=== PATIENT | male | born 1975 | race Caucasian/White ===

== ENCOUNTER 2021-11-16 09:58 | Emergency (ER) | payer OTHER, SELFPAY ==
[2021-11-16 10:22] VITALS: BP 142/101; PULSE 71; RESP 18; TEMP 36.4; O2SAT 99; BMI 38.6
--- NOTE | 2021-11-16 11:05 | CRLHL7_ITS ---
For Patients: As a result of the Century Cures Act, medical imaging exams and procedure reports are released immediately into your electronic medical record. You may view this report before your referring provider. If you have questions, please contact your health care provider. Indication: Left flank pain, urinary frequency Technique: Volumetric multidetector CT images of the abdomen and pelvis were without the administration of intravenous contrast. Comparison: None available. Findings: There is minimal dependent basilar atelectasis seen within the lung bases. The liver is normal in attenuation without intrahepatic biliary ductal dilatation. The gallbladder is unremarkable without evidence of radiopaque calculus. There is no significant common biliary ductal dilatation or abrupt cut off. The spleen is normal in attenuation and size. The stomach and duodenum are grossly unremarkable. The pancreas is normal in attenuation without significant atrophy. The adrenal glands are unremarkable. There is no evidence of radiopaque calculus or hydronephrosis. There is moderate stool seen throughout the colon with minimal distal colonic diverticulosis. There is no evidence of diverticulitis. The appendix is unremarkable. There is no significant mesenteric, retroperitoneal, or pelvic sidewall lymph nodes. The aorta is nonaneurysmal. There is no significant atherosclerotic disease appreciated. The solid pelvic viscera are grossly unremarkable. There is no free fluid or free air. There is a small fat containing umbilical hernia. The lumbar vertebral body heights are grossly maintained with mild multi-level degenerative disc disease. There is no evidence of displaced fracture. Impression: No evidence of obstructive radiopaque calculus or hydronephrosis. Moderate stool seen throughout the colon with minimal colonic diverticulosis. No evidence of diverticulitis. No definite acute intra-abdominal abnormality. Please note that all CT scans at this facility use dose modulation, iterative reconstruction, and/or weight-based dosing when appropriate to reduce radiation dose to as low as reasonably achievable. Dictated by Deo Jeffrey MD @ 11/16/2021 12:29:57 PM (Electronically Signed)
--- NOTE | 2021-11-16 11:07 | ED_ITS ---
HPI - General Adult General Chief complaint: Flank Pain Stated complaint: Kidney pain Time Seen by Provider: 11/16/21 10:53 History of Present Illness HPI narrative: This 46-year-old male comes in reporting left flank pain and urinary frequency over the past couple days. He states that he was positive for COVID at the end of last month and has had a negative test since then. He states that he has left flank pain that is reproducible when he might hiccups or burp. He also has increased pain when eating certain foods. pain is not particularly worse with any specific movement otherwise. He does not report any nausea, vomiting, diarrhea, or fevers. He states that this pain in his left flank seems to come and go. He does not have a personal history of kidney stones but states that his brother did have such. Prior to this he has been in good health. Related Data Previous Rx's Medication Instructions Recorded albuterol sulfate 90 mcg/actuation 2 inh INHALATION Q4H PRN #8.5 g 11/04/21 aerosol inhaler (Ventolin HFA) prednisone 20 mg tablet 20 mg PO BID #10 tab 11/04/21 cyclobenzaprine 10 mg tablet 10 mg PO TID #15 tab 11/16/21 ketorolac 10 mg tablet 10 mg PO TID 5 Days #15 tab 11/16/21 Allergies Allergy/AdvReac Type Severity Reaction Status Date / Time No Known Drug Allergies Allergy Verified 11/16/21 10:33 Review of Systems Status of ROS: Reports: 10 or more systems reviewed and unremarkable except as noted in History and below Narrative: Constitutional: No fevers, no weight gain or loss. Eyes: No discharge. No vision changes. HENT: No congestion, no sore throat, no ear pain. Cardiovascular: No chest pain, no palpitations. Respiratory: No shortness of breath, no wheezes, no cough. Gastrointestinal: No abdominal pain, no vomiting, no diarrhea. Left flank pain as described above. Genitourinary: No hematuria. Increased urinary frequency. Musculoskeletal: Normal range of motion. Skin: No rashes, no pruritis. Neurological: No dizziness, weakness, sensory change, speech change. Endo/Heme/Allergies: No bruising or bleeding. No polydipsia. Pysch: no suicidality, no anxiety, no insomnia. All other systems reviewed and are negative. [facility] Medical History (Updated 11/16/21 @ 14:45 by Jeffrey Bah MD) COVID Surgical History (Updated 11/16/21 @ 11:22 by Chelsey Regalado RN) No significant past surgical history Social History Smoking Status: Never smoker Do you use any of these nicotine containing products: None Second hand tobacco smoke exposure: No How often do you have a drink containing alcohol: never How often do you have six or more drinks on one occasion: Never AUDIT-C Alcohol total score: 0 Non-prescribed substance use: denies use Exam Narrative: Exam Narrative: Constitutional: Well-developed, well-nourished, no acute distress. HEENT: Normocephalic, atraumatic. Neck: Normal range of motion. Nontender. Supple. Heart: Regular. No murmurs. Normal rate. Intact distal pulses. Lungs: Clear to auscultation. No chest discomfort. No wheezes, rhonchi, or rales. Abdomen: Normal bowel sounds. Nontender. No rebound tenderness. Genitalia: Deferred. Back: No midline tenderness. Normal range of motion. Extremities: Normal range of motion. No injury. Skin: Intact. No rash. Warm. No erythema or pallor. Neurologic: No altered sensation. No weakness. Alert and oriented. Psychiatric: No suicidality. No anxiety or depression. No insomnia. Nursing notes and vitals signs are reviewed. Const: Vital Signs, click to edit/add: Vital Signs - 24 hr 11/16/21 10:22 Temperature 97.6 F Pulse Rate [Femora l] 71 Respiratory Rate 18 Blood Pressure [Le ft Forearm] 142/101 H Pulse Oximetry 99 Course Vital Signs Vital signs: Initial Vital Signs Temperature 97.6 F 11/16/21 10:22 Temperature Source Temporal Artery Scan 11/16/21 10:22 Pulse Rate 71 11/16/21 10:22 Pulse Rhythm 11/16/21 10:22 Respiratory Rate 18 11/16/21 10:22 Blood Pressure 142/101 H 11/16/21 10:22 Blood Pressure Mean 114 11/16/21 10:22 Blood Pressure Position Sitting 11/16/21 10:22 Pulse Oximetry 99 11/16/21 10:22 Oxygen Delivery Method 11/16/21 10:22 Vital Signs Temperature 97.6 F 11/16/21 10:22 Pulse Rate 71 11/16/21 10:22 Respiratory Rate 18 11/16/21 10:22 Blood Pressure 142/101 H 11/16/21 10:22 Pulse Oximetry 99 11/16/21 10:22 Temperature 97.6 F 11/16/21 10:22 Pulse Rate 71 11/16/21 10:22 Respiratory Rate 18 11/16/21 10:22 Blood Pressure 142/101 H 11/16/21 10:22 Pulse Oximetry 99 11/16/21 10:22 Medical Decision Making MDM Narrative Medical decision making narrative: This 46-year-old male comes in with left flank pain that is reproducible with certain maneuvers. He also reports some urinary frequency. Labs were drawn which returned with normal results. He did have a brother with a kidney stones was CT scan also was done but this returns with no evidence of any abnormality that would explain his symptoms. It seems more likely that this is musculos keletal in nature. There is a reproducible component to these symptoms. The patient received prescriptions for Toradol and Flexeril. He is reassured with the lab and imaging results. Lab Data Labs: Lab Results 11/16/21 11/16/21 11/16/21 Range/Units 11:15 11:22 11:22 WBC 6.94 (4.50-11.00) K/uL RBC 4.93 (4.30-5.90) m/uL Hgb 14.3 (13.5-17.5) gm/dL Hct 42.5 (37.0-53.0) % MCV 86 (80-100) fL MCH 29 (26-34) pg MCHC 34 (32-36) gm/dL RDW Coeff of Laure 13.1 (11.5-15.5) % Plt Count 269 (140-440) K/uL Neut % (Auto) 57.4 (42.0-72.0) % Lymph % (Auto) 29.8 (20-44) % [place] % (Auto) 10.4 (0.0-11.0) % Eos % (Auto) 1.9 (0.0-7.0) % Baso % (Auto) 0.4 (0.0-3.0) % Neut # (Auto) 3.98 (1.7-7.0) K/uL Lymph # (Auto) 2.07 (0.90-2.90) K/uL [place] # (Auto) 0.70 (0.00-0.90) K/UL Eos # (Auto) 0.13 (0.00-0.50) K/uL Baso # (Auto) 0.03 (0.00-0.30) K/uL Abs Immat Gran (auto) 0.01 (0.00-0.30) K/uL Sodium 139 (135-149) mmol/L Potassium 4.1 (3.6-5.1) mmol/L Chloride 105 (96-114) mmol/L Carbon Dioxide 26 (20-32) mmol/L BUN 10 (5-24) mg/dL Creatinine 0.8 (0.5-1.5) mg/dL Estimated Creat Clear 121.67 Glucose 95 (60-115) mg/dL Calcium 9.0 (8.4-10.6) mg/dL Total Bilirubin 0.6 (0.1-1.5) mg/dL Direct Bilirubin 0.4 (0.0-0.5) mg/dL AST 28 (12-35) U/L ALT 42 (4-50) U/L Alkaline Phosphatase 77 (40-150) U/L Total Protein 7.8 (6.0-8.3) g/dL Albumin 4.6 (3.3-5.0) g/dL Lipase 51 (23-300) U/L Urine Color Yellow (Yellow) Urine Appearance Clear (Clear) Urine pH 7.0 (5.0-8.5) Ur Specific [place] 1.010 (1.000-1.030) Urine Protein Negative (Negative) Urine Glucose (UA) Negative (Negative) Urine Ketones Negative (Negative) Urine Blood Negative (Negative) Urine Nitrite Negative (Negative) Urine Bilirubin Negative (Negative) Urine Urobilinogen 0.2 (0.2-1.0) Ur Leukocyte Esterase Negative (Negative) Urine RBC 0-2 (0-2) Urine WBC 0-2 (0-5) Ur Squamous Epith Cells Few (None-Few) Urine Bacteria Few A (None) Imaging Data CT scan - abdomen: Radiologist's impression: No evidence of obstructive radiopaque calculus or hydronephrosis. Moderate stool seen throughout the colon with minimal colonic diverticulosis. No evidence of diverticulitis. No definite acute intra-abdominal abnormality. Discharge Plan Discharge Clinical Impression: Acute left flank pain Patient Disposition: Home, Self-Care Condition: Stable Instructions: Flank Pain (ED) Additional Instructions: Left flank pain. Urinary frequency. Take medication as prescribed. Consider using peridium (Azo, Uristat, Prodium) also as needed and directed. Follow up with MD or return if worsening. Prescriptions: New ketorolac 10 mg tablet 10 mg PO TID 5 Days Qty: 15 0RF cyclobenzaprine 10 mg tablet 10 mg PO TID Qty: 15 0RF No Action prednisone 20 mg tablet 20 mg PO BID Qty: 10 0RF albuterol sulfate [Ventolin HFA] 90 mcg/actuation HFA aerosol inhaler 2 inh inhalation Q4H PRN (Reason: shortness of breath or wheezing) Qty: 8.5 5RF Follow Up/Referrals: Ulysses Hanley MD [Referring] - Stand Alone Forms: [employer] Info Instructions
[2021-11-16 11:28] LABS: Appearance Urine Clear (Clear); Bilirubin Urine Negative (Negative); Blood Urine Negative (Negative); Color Urine Yellow (Yellow); Glucose Urine Negative (Negative); Ketones Urine Negative (Negative); Leukocyte Esterase Urine Negative (Negative); Nitrite Urine Negative (Negative); Protein Urine Negative (Negative); Urobilinogen Urine 0.2 (0.2-1.0)
[2021-11-16 11:37] LABS: Carbon Dioxide* 26 mmol/L (20-32); Chloride* 105 mmol/L (96-114); Glucose* 95 mg/dL (60-115); Potassium* 4.1 mmol/L (3.6-5.1); Sodium* 139 mmol/L (135-149)
[2021-11-16 11:39] LABS: Basophils Absolute Auto 0.03 K/uL (0.00-0.30); Basophils Percent Auto 0.4 % (0.0-3.0); Eosinophils Absolute Auto 0.13 K/uL (0.00-0.50); Eosinophils Percent Auto 1.9 % (0.0-7.0); Hematocrit 42.5 % (37.0-53.0); Hemoglobin* 14.3 gm/dL (13.5-17.5); Immature Granulocytes Abs Auto 0.01 K/uL (0.00-0.30); Lymphocytes Absolute Auto 2.07 K/uL (0.90-2.90); Lymphocytes Percent Auto 29.8 % (20-44); Mean Corpuscular HGB Conc 34 gm/dL (32-36); Mean Corpuscular Hemoglobin 29 pg (26-34); Mean Corpuscular Volume 86 fL (80-100); Monocytes Percent Auto 10.4 % (0.0-11.0); Neutrophils Absolute Auto 3.98 K/uL (1.7-7.0); Neutrophils Percent Auto 57.4 % (42.0-72.0); Platelet Count* 269 K/uL (140-440); RDW Coefficient of Variation % 13.1 % (11.5-15.5); Red Blood Count 4.93 m/uL (4.30-5.90); White Blood Count* 6.94 K/uL (4.50-11.00)
[2021-11-16 11:41] LABS: Bacteria Urine Few; RBC Urine 0-2 (0-2); Squamous Epithelial Cell Urine Few (None-Few); WBC Urine 0-2 (0-5)
[2021-11-16 11:56] LABS: Slide Review Reflex No
[2021-11-16 13:27] LABS: Albumin* 4.6 g/dL (3.3-5.0)
[2021-11-16 13:30] LABS: Aspartate Amino Transferase* 28 U/L (12-35); Bilirubin Direct* 0.4 mg/dL (0.0-0.5); Bilirubin Total* 0.6 mg/dL (0.1-1.5); Blood Urea Nitrogen* 10 mg/dL (5-24); Creatinine* 0.8 mg/dL (0.5-1.5); Est. Creatinine Clearance* 121.67; Estimated Glomerular Filt Rate 111.92; Total Protein* 7.8 g/dL (6.0-8.3)
[2021-11-16 13:31] LABS: Alanine Aminotransferase* 42 U/L (4-50); Alkaline Phosphatase* 77 U/L (40-150); Lipase* 51 U/L (23-300)
== END 2021-11-16 15:01 | disposition home or self-care (01) ==
PROVIDERS: Emergency Provider Emergency Medicine Emergency Medical Services
DX: R10.12 Left upper quadrant pain (principal)
CPT/HCPCS: 36415; 74176; 80048; 80076; 81001; 83690; 85025; 87086; 99284; 99285

== ENCOUNTER 2023-06-16 17:31 | Emergency (ER) | payer OTHER, SELFPAY ==
[2023-06-16] VITALS (22 sets, daily range): BP systolic 109–149; BP diastolic 75–114; PULSE 68–91; RESP 18; O2SAT 91–97; BMI 40.2
--- NOTE | 2023-06-16 17:51 | CRLHL7_ITS ---
For Patients: As a result of the Century Cures Act, medical imaging exams and procedure reports are released immediately into your electronic medical record. You may view this report before your referring provider. If you have questions, please contact your health care provider. Indication: Chest pain. Shortness of breath. Technique: PA and lateral chest radiographs. Comparison: Chest CT from 01/23/2021. Findings: Lungs are clear. No consolidation, effusion or pneumothorax. Cardiomediastinal silhouette is within normal limits. No significant osseous or soft tissue findings. Impression: 1. No acute cardiopulmonary process. Dictated by Chris Redd MD @ 06/16/2023 7:16:27 PM (Electronically Signed)
--- NOTE | 2023-06-16 17:57 | ED_ITS ---
HPI - Chest Pain General Date Seen: 06/16/23 Chief Complaint: Chest Pain Stated Complaint: Chest pain-hard to breath Time Seen by Provider: 06/16/23 17:37 Source: patient Mode of arrival: ambulatory Limitations: no limitations History of Present Illness HPI narrative: Patient is a 48-year-old male with no pertinent medical problems presenting to the emergency department for chest pain and shortness of breath. He states he has been feeling shortness of breath for the past 6 month but has not noticed the chest pain until the past month. Has no chest pain has been worsening over the past 2 weeks with it seeming to get acutely worse last night. Patient states he will have be the chest pain radiates to his left arm when he exerts himself. She describes as a pressure sensation throughout his chest. Denies ever having symptoms like this before. Does state just lateral to his sternum on the right about ribs 4 and 5 it is tender to palpation in that is where most of the pain is. Denies any history of blood clots. Denies fevers, chills, weakness, numbness, headache, vision changes, abdominal pain, diarrhea, constipation. He states he sees his doctor roughly once a year and has not been diagnosed with any medical issues or placed on any medication previously. Does have a father says does have a PA at age 49. Also have 2 uncles that had MIs in their 40s. Related Data Home Medications Medication Instructions Recorded Confirmed guaifenesin 100 mg/5 mL oral 200 mg PO Q4H PRN 03/26/22 03/26/22 liquid (Mucinex Fast-Max Chest Congestion) ibuprofen 200 mg tablet (Advil) 400 mg PO Q8H 03/26/22 03/26/22 Previous Rx's Medication Instructions Recorded albuterol sulfate 90 mcg/actuation 2 inh inhalation Q4H PRN shortness 11/04/21 aerosol inhaler (Ventolin HFA) of breath or wheezing #8.5 grams prednisone 20 mg tablet 20 mg PO BID #10 tabs 11/04/21 cyclobenzaprine 10 mg tablet 10 mg PO TID #15 tabs 11/16/21 ketorolac 10 mg tablet 10 mg PO TID 5 days #15 tabs 11/16/21 Allergies Allergy/AdvReac Type Severity Reaction Status Date / Time No Known Drug Allergies Allergy Verified 06/16/23 17:35 Review of Systems Status of ROS Reports: 10 or more systems reviewed and unremarkable except as noted in History and below [facility] Medical History COVID ?U07.1 - COVID-19 (ICD-10) Surgical History No significant past surgical history Social History Smoking Status: Never smoker Do you use any of these nicotine containing products: None Second hand tobacco smoke exposure: No How often do you have a drink containing alcohol: never How often do you have six or more drinks on one occasion: Never AUDIT-C Alcohol total score: 0 Non-prescribed substance use: denies use Exam Narrative Exam Narrative: Const: Well-nourished, Well-developed, in mild distress Eyes: PERRL, no conjunctival injection, and symmetrical lids HENT: Atraumatic external nose and ears. Moist mucous membranes. Neck: Symmetric, trachea midline, No thyromegaly. CVS: RRR, No murmurs or gallops. Peripheral pulses 2+ and equal in all extremities RESP: Unlabored respiratory effort. Clear to auscultation bilaterally. GI: Nontender/Nondistended, No rebound or guarding. MSK:Extremities w/o deformity, Normal Active ROM, chest tender just lateral to sternum about ribs 4 5. Skin: Warm, Dry. No rashes or lesions. Neuro: Normal Muscle tone, No focal neurological deficits. Psych: Awake, Alert, & Oriented x3. Appropriate mood and affect. Const Vital Signs, click to edit/add: Vital Signs - 24 hr 06/16/23 17:35 06/16/23 18:41 06/16/23 18:42 Pulse Rate 81 69 Pulse Rate [Pulse Oximeter] 91 Respiratory Rate 18 Blood Pressure 138/114 H Blood Pressure [Right Upper Arm] 149/103 H Pulse Oximetry 97 97 96 Oxygen Delivery Method Room Air 06/16/23 18:45 06/16/23 19:00 06/16/23 19:02 Pulse Rate 72 77 79 Pulse Rate [Pulse Oximeter] Respiratory Rate Blood Pressure 129/97 H Blood Pressure [Right Upper Arm] Pulse Oximetry 95 91 95 Oxygen Delivery Method 06/16/23 19:15 06/16/23 19:21 06/16/23 19:30 Pulse Rate 77 85 86 Pulse Rate [Pulse Oximeter] Respiratory Rate Blood Pressure 132/92 H Blood Pressure [Right Upper Arm] Pulse Oximetry 96 92 94 Oxygen Delivery Method 06/16/23 19:42 06/16/23 19:42 06/16/23 19:43 Pulse Rate 68 68 68 Pulse Rate [Pulse Oximeter] Respiratory Rate Blood Pressure 109/75 109/75 Blood Pressure [Right Upper Arm] Pulse Oximetry 95 95 94 Oxygen Delivery Method 06/16/23 19:45 06/16/23 20:00 06/16/23 20:02 Pulse Rate 68 71 Pulse Rate [Pulse Oximeter] Respiratory Rate Blood Pressure 135/95 H Blood Pressure [Right Upper Arm] Pulse Oximetry 92 93 Oxygen Delivery Method 06/16/23 20:15 06/16/23 20:21 Pulse Rate 73 74 Pulse Rate [Pulse Oximeter] Respiratory Rate Blood Pressure 145/100 H Blood Pressure [Right Upper Arm] Pulse Oximetry 96 93 Oxygen Delivery Method Course Vital Signs Vital signs: Initial Vital Signs Temperature Source Temporal Artery Scan 06/16/23 17:35 Pulse Rate 91 06/16/23 17:35 Respiratory Rate 18 06/16/23 17:35 Blood Pressure 149/103 H 06/16/23 17:35 Blood Pressure Mean 118 H 06/16/23 17:35 Blood Pressure Position Sitting 06/16/23 17:35 Pulse Oximetry 97 06/16/23 17:35 Oxygen Delivery Method Room Air 06/16/23 17:35 Vital Signs Pulse Rate 91 06/16/23 17:35 Respiratory Rate 18 06/16/23 17:35 Blood Pressure 149/103 H 06/16/23 17:35 Pulse Oximetry 97 06/16/23 17:35 Oxygen Delivery Method Room Air 06/16/23 17:35 Pulse Rate 74 06/16/23 20:21 Respiratory Rate 18 06/16/23 17:35 Blood Pressure 145/100 H 06/16/23 20:21 Pulse Oximetry 93 06/16/23 20:21 Oxygen Delivery Method Room Air 06/16/23 17:35 Medications Administered Medications: Generic Name Dose Route Start Last Admin Trade Name Freq PRN Reason Stop Dose Admin Ketorolac Tromethamine 15 mg 06/16/23 18:05 06/16/23 18:41 Ketorolac 15 Mg/Ml Inj IVP 06/16/23 18:06 15 mg ONCE ONE Administration Discontinued Medications Generic Name Dose Route Start Last Admin Trade Name Jose PRN Reason Stop Dose Admin Nitroglycerin 0.4 mg 06/16/23 17:51 06/16/23 17:58 Nitroglycerin 0.4 Mg Tab.Subl SUBLINGUAL 06/16/23 17:52 0.4 mg ONCE ONE Administration MDM - Chest Pain MDM Narrative Medical decision making narrative: Patient is a 48-year-old male presenting to the emergency department for chest pain. His history is concerning for ACS considering the family history but otherwise has no risk factors. EKG was ordered and shows no concerning findings. No signs of inferior STEMI so nitro was given. This did not improve his symptoms at all. Also ordered troponin, CBC, CMP, chest x-ray, D-dimer, COVID/flu/RSV. Differential includes pneumonia, pneumothorax, blood clot, musculoskeletal chest pain. Patient's lab work all returned showing no concerning findings. D-dimer within normal limits and PE is unlikely. COVID/flu/RSV is negative. Two troponins were done 2 hours apart and both were negative. Chest x-ray showed no concerning findings. Had some improvement in his pain Toradol. X-ray reviewed by myself and radiologist shows no concerning abnormalities. No signs of pneumonia or pneumothorax. I spoke to the patient and he states he still having symptoms and is concerned about it and is concerned about nodules in his lungs. I spoke to the patient we will do CT scan with IV contrast to better evaluate this. A returned showing stable nodules no acute findings. He has heart score of 2. This point there is no emergent issues and I believe he is best off following up with primary care provider. He is agreeable to this plan. Lab Data Labs: Lab Results 06/16/23 06/16/23 Range/Units 18:10 20:14 WBC 7.10 (4.50-11.00) K/uL RBC 4.65 (4.30-5.90) m/uL Hgb 13.5 (13.5-17.5) gm/dL Hct 39.4 (37.0-53.0) % MCV 85 (80-100) fL MCH 29 (26-34) pg MCHC 34 (32-36) gm/dL RDW Coeff of Laure 13.0 (11.5-15.5) % Plt Count 265 (140-440) K/uL Neut % (Auto) 59.8 (42.0-72.0) % Lymph % (Auto) 28.2 (20-44) % [place] % (Auto) 8.7 (0.0-11.0) % Eos % (Auto) 2.8 (0.0-7.0) % Baso % (Auto) 0.4 (0.0-3.0) % Neut # (Auto) 4.24 (1.7-7.0) K/uL Lymph # (Auto) 2.00 (0.90-2.90) K/uL [place] # (Auto) 0.60 (0.00-0.90) K/UL Eos # (Auto) 0.20 (0.00-0.50) K/uL Baso # (Auto) 0.03 (0.00-0.30) K/uL Abs Immat Gran (auto) 0.01 (0.00-0.30) K/uL Imm/Tot Granulo (auto) 0.1 % D-Dimer Quant (PE/DVT) 0.33 (0.00-0.50) ug/ml Sodium 138 (135-149) mmol/L Potassium 3.7 (3.6-5.1) mmol/L Chloride 106 (96-114) mmol/L Carbon Dioxide 20 (20-32) mmol/L Anion Gap 12 (7-15) mEq/L BUN 12 (5-24) mg/dL Creatinine 1.0 (0.5-1.5) mg/dL Estimated Creat Clear 95.31 Estimated GFR 94 ml/min Glucose 123 H (60-115) mg/dL Calcium 9.1 (8.4-10.6) mg/dL Total Bilirubin 0.5 (0.1-1.5) mg/dL AST 32 (12-35) U/L ALT 42 (4-50) U/L Alkaline Phosphatase 72 (40-150) U/L Troponin I < 0.01 L (0.01-0.04) ng/mL Total Protein 7.7 (6.0-8.3) g/dL Albumin 4.6 (3.3-5.0) g/dL SARS-CoV-2 (PCR) Negative SARS-CoV-2 (Negative) Influenza Type A (PCR) Negative PCR FLU A (Negative) Influenza Type B (PCR) Negative PCR FLU B (Negative) RSV (PCR) Negative PCR RSV (Negative) POC Troponin I 0.00 L 0.00 L (0.01-0.04) ng/ml Imaging Data Chest x-ray: Radiologist's impression: 1. No acute cardiopulmonary process. Dictated by Chris Redd MD @ 06/16/2023 7:16:[address] scan chest: Radiologist's impression: No acute intrathoracic abnormality. Please note that all CT scans at this facility use dose modulation, iterative reconstruction, and/or weight-based dosing when appropriate to reduce radiation dose to as low as reasonably achievable. Dictated by Keith Johnson MD @ 06/16/2023 8:24:22 PM ECG Data Attestation: I personally reviewed and interpreted this ECG as follows: Prior ECG tracings: not available for review Interpretation: Normal sinus rhythm with a rate of 79 beats per minute, normal intervals, normal axis, no ST or T-wave abnormalities Discharge Plan Discharge Clinical Impression: Atypical chest pain Patient Disposition: Home, Self-Care Condition: Stable Instructions: Noncardiac Chest Pain (ED) Additional Instructions: Follow-up with your primary care provider. Return to emergency department for new or worsening symptoms Prescriptions: No Action prednisone 20 mg tablet 20 mg PO BID Qty: 10 0RF albuterol sulfate [Ventolin HFA] 90 mcg/actuation HFA aerosol inhaler 2 inh inhalation Q4H PRN (Reason: shortness of breath or wheezing) Qty: 8.5 5RF ibuprofen [Advil] 200 mg tablet 400 mg PO Q8H guaifenesin [Mucinex Fast-Max Chest-Congest] 100 mg/5 mL liquid 200 mg PO Q4H PRN ketorolac 10 mg tablet 10 mg PO TID 5 Days Qty: 15 0RF cyclobenzaprine 10 mg tablet 10 mg PO TID Qty: 15 0RF Follow Up/Referrals: Shanna Johnson PA-C [Primary Care Provider] - Stand Alone Forms: [employer] Info Instructions
[2023-06-16] MEDS: NITROGLYCERIN 0.4 MG TAB.SUBL SUBLINGUAL (17:58)
[2023-06-16 18:26] LABS: Basophils Absolute Auto 0.03 K/uL (0.00-0.30); Basophils Percent Auto 0.4 % (0.0-3.0); Eosinophils Percent Auto 2.8 % (0.0-7.0); Hematocrit 39.4 % (37.0-53.0); Hemoglobin* 13.5 gm/dL (13.5-17.5); Immature Granulocytes Abs Auto 0.01 K/uL (0.00-0.30); Immature Granulocytes Pct Auto 0.1 %; Lymphocytes Percent Auto 28.2 % (20-44); Mean Corpuscular HGB Conc 34 gm/dL (32-36); Mean Corpuscular Hemoglobin 29 pg (26-34); Mean Corpuscular Volume 85 fL (80-100); Monocytes Percent Auto 8.7 % (0.0-11.0); Neutrophils Absolute Auto 4.24 K/uL (1.7-7.0); Neutrophils Percent Auto 59.8 % (42.0-72.0); Platelet Count* 265 K/uL (140-440); Red Blood Count 4.65 m/uL (4.30-5.90)
[2023-06-16 18:35] LABS: Slide Review Reflex No
[2023-06-16 18:41] LABS: Albumin* 4.6 g/dL (3.3-5.0); Chloride* 106 mmol/L (96-114)
[2023-06-16] MEDS: KETOROLAC 15 MG/ML inj IVP (18:41)
[2023-06-16 18:42] LABS: Potassium* 3.7 mmol/L (3.6-5.1); Sodium* 138 mmol/L (135-149)
[2023-06-16 18:44] LABS: Alkaline Phosphatase* 72 U/L (40-150); Anion Gap 12 mEq/L (7-15); Aspartate Amino Transferase* 32 U/L (12-35); Bilirubin Total* 0.5 mg/dL (0.1-1.5); Blood Urea Nitrogen* 12 mg/dL (5-24); Carbon Dioxide* 20 mmol/L (20-32); Est. Creatinine Clearance* 95.31; Estimated Glomerular Filt Rate 94 ml/min; Total Protein* 7.7 g/dL (6.0-8.3)
[2023-06-16 18:45] LABS: Alanine Aminotransferase* 42 U/L (4-50); Calcium* 9.1 mg/dL (8.4-10.6); D Dimer Quantitative* 0.33 ug/ml (0.00-0.50); Glucose* 123 mg/dL (60-115)
[2023-06-16 18:57] LABS: Troponin I* < 0.01 ng/mL (0.01-0.04)
[2023-06-16 19:08] LABS: PCR FLU A Negative PCR FLU A (Negative); PCR FLU B Negative PCR FLU B (Negative); PCR RSV Negative PCR RSV (Negative); SARS PCR* Negative SARS-CoV-2 (Negative)
--- NOTE | 2023-06-16 19:37 | CRLHL7_ITS ---
For Patients: As a result of the Century Cures Act, medical imaging exams and procedure reports are released immediately into your electronic medical record. You may view this report before your referring provider. If you have questions, please contact your health care provider. INDICATION: Chest pain. TECHNIQUE: CT chest was acquired with 75 cc Isovue 370 IV contrast. COMPARISON: January 23, 2021. FINDINGS: Lungs and pleura: Stable 5 millimeter right lower lobe nodule. Stable 2 millimeter left lower lobe granuloma. No suspicious nodules or infiltrates. No pleural effusions, pleural thickening, or pneumothorax. Heart and vasculature: Heart size is normal. Thoracic aorta and pulmonary artery are normal in caliber. Lymph nodes/mediastinum: No mediastinal, hilar, or axillary adenopathy. Chest wall: No masses. Upper abdomen: Normal. Bones: Unremarkable for age. IMPRESSION: No acute intrathoracic abnormality. Please note that all CT scans at this facility use dose modulation, iterative reconstruction, and/or weight-based dosing when appropriate to reduce radiation dose to as low as reasonably achievable. Dictated by Keith Johnson MD @ 06/16/2023 8:24:22 PM (Electronically Signed)
== END 2023-06-16 21:11 | disposition home or self-care (01) ==
PROVIDERS: Emergency Provider Student in an Organized Health Care Education/Training Program; PCP Physician Assistant Medical
DX: R07.89 Other chest pain (principal)
CPT/HCPCS: 36415; 71046; 71260; 80053; 84484; 85025; 85379; 87631; 93005; 96374; 99283; 99284; 99285; A9270; J1885; Q9967

== ENCOUNTER 2023-11-01 08:03 | Outpatient (CLI) | payer OTHER, SELFPAY | END 2023-11-01 08:04 | disposition home or self-care (01) | LOC: LKVREF 08:07 | PROVIDERS: PCP Physician Assistant Medical; Visit Provider Family Medicine | DX: Z00.00 Encounter for general adult medical examination without abnormal findings (principal); K21.9 Gastro-esophageal reflux disease without esophagitis; R07.9 Chest pain, unspecified; R00.2 Palpitations; R06.02 Shortness of breath | CPT/HCPCS: 80053; 80061 ==

== ENCOUNTER 2023-11-14 08:21 | Outpatient (CLI) | payer OTHER, SELFPAY ==
--- NOTE | 2023-11-14 10:11 | W.ANESCHARGE ---
Anesthesia Charges Start Date/Time Anesthesia Start Date: 11/14/23 Anesthesia Start Time: 09:30 Stop Date/Time Anesthesia Stop Date: 11/14/23 Anesthesia Stop Time: 10:07
--- NOTE | 2023-11-14 10:26 | W.ANESCHARGE ---
Anesthesia Charges Start Date/Time Anesthesia Start Date: 11/14/23 Anesthesia Start Time: 09:30 Stop Date/Time Anesthesia Stop Date: 11/14/23 Anesthesia Stop Time: 10:07
== END 2023-11-14 08:22 | disposition home or self-care (01) ==
LOC: OP CLINIC 08:21
PROVIDERS: PCP Physician Assistant Medical; Visit Provider Internal Medicine
DX: Z12.11 Encounter for screening for malignant neoplasm of colon (principal); K63.5 Polyp of colon; K57.30 Diverticulosis of large intestine without perforation or abscess without bleeding; R12 Heartburn
CPT/HCPCS: 00731; 00813; 43239; 45385; 88305; 88341; 88342; J2704

== ENCOUNTER 2023-12-20 10:33 | Outpatient (CLI) | payer OTHER, SELFPAY ==
[2023-12-20 11:40] VITALS: BP 128/80; PULSE 104; RESP 18
--- NOTE | 2023-12-20 12:28 | W.PM.STED ---
Stress Test Note Date Date of test: 12/20/23 Providers Primary care provider: Nitesh Marrero Stress test physician: Wilber Vallejo Stress Test Note Stress test ordered: Exercise Stress Test Indication for test: Shortness of breath, high calcium score Results discussion: Is a 48-year-old gentleman who presents for the above test, after discussion the risks benefits and side effects he would like to proceed pretest EKG shows normal sinus rhythm, with a ventricular rate of 72 blood pressure 130/80, no acute ST wave changes are noted. Standard Connor protocol is done over a time course of 9 minutes 31 seconds, achieved a metabolic equivalent of 11.5 Mets. Maximum heart rate was 156 was 105% of the target, with maximum blood pressure of 212/78. Test is terminated because of shortness of breath with chest pressure. During this test, patient had no ST wave changes, suggestive of ischemia, there is no dysrhythmias. Impression: Positive subjective stress test, negative objective Follow up suggested: See above report, patient recovered normally, there was no complications. If further testing is needed, I would suggest the stress echo, or exercise stress Myoview.
== END 2023-12-20 11:42 | disposition home or self-care (01) ==
LOC: STRESS 10:34
PROVIDERS: PCP Family Medicine; Visit Provider Family Medicine
DX: R07.9 Chest pain, unspecified (principal); R06.02 Shortness of breath; R00.2 Palpitations
CPT/HCPCS: 93016; 93017

== ENCOUNTER 2024-05-04 07:58 | Outpatient (CLI) | payer OTHER, SELFPAY | END 2024-05-04 07:59 | disposition home or self-care (01) | LOC: NFLDREF 05-09 02:37 | PROVIDERS: PCP Family Medicine; Referring Provider Family Medicine; Visit Provider Family Medicine | DX: E78.00 Pure hypercholesterolemia, unspecified (principal) | CPT/HCPCS: 80061 ==

== ENCOUNTER 2024-05-08 11:15 | Outpatient (RCR) | payer OTHER, SELFPAY | END 2024-09-05 23:59 | disposition home or self-care (01) | PROVIDERS: PCP Family Medicine; Visit Provider Family Medicine | DX: M54.9 Dorsalgia, unspecified (principal); M25.552 Pain in left hip; M25.551 Pain in right hip; M25.859 Other specified joint disorders, unspecified hip; Z51.89 Encounter for other specified aftercare | CPT/HCPCS: 97012; 97110; 97140; 97162 ==